=== PATIENT | male | born 2000 | race Caucasian/White ===

== ENCOUNTER 2019-10-04 09:51 | Emergency (ER) | payer OTHER, SELFPAY ==
--- NOTE | ~2019-10-04 | XR_ITS ---
XR ankle RT min 3V DATE: 10/04/2019 11:14 INDICATION: Fall. Right ankle pain. TECHNIQUE: 4 views COMPARISON: 07/19/2012 right ankle FINDINGS: There is prominent lateral soft tissue swelling. No fracture or dislocation of the ankle or disruption of the ankle mortise is detected. Os subfibular A, normal variant. IMPRESSION: Prominent lateral soft tissue swelling Reviewed, dictated and finalized at location B.
[2019-10-04 10:06] VITALS: BP 125/68; PULSE 64; RESP 12; TEMP 36.6; O2SAT 99
--- NOTE | 2019-10-04 11:29 | ED.GENADULT ---
HPI - General Adult General Chief complaint: Extremity Injury, Lower <Jose Eisenberg PA-C - Last Filed: 10/04/19 11:33> Stated complaint: right ankle pain <EMANI Meyers Last Filed: 10/04/19 11:33> Time Seen by Provider: 10/04/19 10:07 <Jose Eisenberg PA-C - Last Filed: 10/04/19 11:33> Source: patient and family <Jose Eisenberg PA-C - Last Filed: 10/04/19 11:33> Mode of arrival: ambulatory <Jose Eisenberg PA-C - Last Filed: 10/04/19 11:33> Limitations: no limitations <EMANI Meyers Last Filed: 10/04/19 11:33> History of Present Illness HPI narrative: Patient presents with right ankle pain and swelling after stepping into a hole just prior to arrival notes moderate aching pain with difficulty with bearing weight patient denies other injuries or complaints and on arrival to emergency department is in the room and no distress and has not had anything for pain. Patient denies other injuries or complaints <Jose Eisenberg PA-C - Last Filed: 10/04/19 11:33> Related Data Allergies/adverse reactions: Allergies Allergy/AdvReac Type Severity Reaction Status Date / Time No Known Allergies Allergy Unknown Verified 04/10/15 21:24 <Jose Eisenberg PA-C - Last Filed: 10/04/19 11:33> Review of Systems Review of Systems: All systems reviewed & are unremarkable except as noted in HPI and below <Jose Eisenberg PA-C - Last Filed: 10/04/19 11:33> [facility] Family History Family History: Family History (Updated 12/31/16 @ 07:34 by DOCTOR UNKNOWN) Mother Family history of thyroid disease Family history of hypothyroidism <Jose Eisenberg PA-C - Last Filed: 10/04/19 11:33> Social History Social History: Social History Smoking status: Never smoker Alcohol intake: never <EMANI Meyers Last Filed: 10/04/19 11:33> Exam Narrative: Exam Narrative: GENERAL: Well-appearing, well-nourished, and in no acute distress. HEAD: Normocephalic, atraumatic. EYES: PERRLA and EOMI. ENT: Nares clear, no rhinorrhea or epistaxis. Mucous membranes moist. EXTREMITIES: Swelling and tenderness of the right ankle joint remainder of extremity from the knee down nontender SKIN: Warm, dry, no rash. NEURO: No focal deficits. Alert and oriented x3. Neurovascularly intact PSYCH: Normal mood and affect. <Jose Eisenberg PA-C - Last Filed: 10/04/19 11:33> Course Course Emergency Course: Patient in the room aware of case findings treatment plan and diagnosis agreeing to follow-up as directed <Jose Eisenberg PA-C - Last Filed: 10/04/19 11:33> Vital Signs Vital signs: Vital Signs Temperature 97.9 F 10/04/19 10:06 Pulse Rate 64 10/04/19 10:06 Respiratory Rate 12 10/04/19 10:06 Blood Pressure 125/68 10/04/19 10:06 Pulse Oximetry 99 10/04/19 10:06 Temperature 97.9 F 10/04/19 10:06 Pulse Rate 65 10/04/19 12:03 Respiratory Rate 12 10/04/19 12:03 Blood Pressure 121/64 10/04/19 12:03 Pulse Oximetry 99 10/04/19 12:03 <Jose Eisenberg PA-C - Last Filed: 10/04/19 11:33> Vital Signs Temperature 97.9 F 10/04/19 10:06 Pulse Rate 64 10/04/19 10:06 Respiratory Rate 12 10/04/19 10:06 Blood Pressure 125/68 10/04/19 10:06 Pulse Oximetry 99 10/04/19 10:06 Temperature 97.9 F 10/04/19 10:06 Pulse Rate 65 10/04/19 12:03 Respiratory Rate 12 10/04/19 12:03 Blood Pressure 121/64 10/04/19 12:03 Pulse Oximetry 99 10/04/19 12:03 <Lesly Avila MD - Last Filed: 10/04/19 12:39> Medical Decision Making MDM Narrative Medical decision making narrative: Patients injury or pain is consistent with musculoskeletal etiology. No signs of neurological or vascular compromise on exam. Compartments and tisues are soft without signs of compartment syndrome. Pain is felt appropriate for further evaluation on an outpat
[2019-10-04 12:03] VITALS: BP 121/64; PULSE 65; RESP 12; O2SAT 99
[2019-10-04] MEDS: IBUPROFEN 600 MG TABLET PO (12:03)
== END 2019-10-04 12:05 | disposition home or self-care (01) ==
PROVIDERS: Emergency Provider Emergency Medicine
DX: S93.401A Sprain of unspecified ligament of right ankle, initial encounter (principal); S96.911A Strain of unspecified muscle and tendon at ankle and foot level, right foot, initial encounter; X50.9XXA Other and unspecified overexertion or strenuous movements or postures, initial encounter
CPT/HCPCS: 73610; 99283; A9270

== ENCOUNTER 2021-03-09 12:04 | Emergency (ER) | payer OTHER, SELFPAY ==
[2021-03-09 12:17] VITALS: BP 137/61; PULSE 71; RESP 16; TEMP 36.4; O2SAT 99
--- NOTE | 2021-03-09 12:29 | ED.URI ---
HPI - URI/Sore Throat General Chief Complaint: Upper Respiratory Infection Stated Complaint: Sore Throat Time Seen by Provider: 03/09/21 12:20 Source: patient, RN notes reviewed and old records reviewed Mode of arrival: ambulatory Limitations: no limitations History of Present Illness HPI Narrative: 20-year-old male presents to the [facility] with complaints of seeing a white spot on his left tonsil this morning. Started with a sore throat yesterday. No treatment prior to arrival Related Data Allergies Allergy/AdvReac Type Severity Reaction Status Date / Time No Known Allergies Allergy Unknown Verified 04/10/15 21:24 Review of Systems Review of Systems: All systems reviewed & are unremarkable except as noted in HPI and below Constitutional: Constitutional: Reports no additional constitutional complaints, Denies chills and Denies fever(s) Eyes: Eyes: Reports no additional eye complaints, Denies change in vision and Denies photophobia ENT: Reports as per HPI, Denies dizziness, Denies nasal congestion and Reports sore throat Cardiovascular: Cardiovascular: Reports no additional cardiovascular complaints and Denies chest pain Respiratory: Respiratory: Reports no additional respiratory complaints, Denies cough and Denies dyspnea Gastrointestinal: Gastrointestinal: Reports no additional gastrointestinal complaints, Denies abdominal pain, Denies diarrhea, Denies nausea and Denies vomiting Genitourinary: Genitourinary: Reports as per HPI Musculoskeletal: Musculoskeletal: Reports as per HPI Integumentary/Breasts: Skin/Breast: Reports system reviewed and no additional complaints, except as docu Neurologic: Reports system reviewed and no additional complaints, except as documented Psychiatric: Psychiatric: Reports no additional psychiatric complaints Allergic/Immunologic: Allergic/Immunologic: Reports no additional allergic/immunologic complaints [facility] Past Medical History Medical History (Updated 03/09/21 @ 12:39 by Antoinette Perkins) No significant medical problems Surgical History Surgical History (Updated 03/09/21 @ 12:39 by Antoinette Perkins) No significant past surgical history Family History Family History Mother Family history of thyroid disease Family history of hypothyroidism Social History Social History Smoking status: Never smoker Alcohol intake: never Comments At the time of my signature, I reviewed and agree with the nursing past medical, surgical, social, and family history. There is no relevant family history pertinent to the patient complaint. Exam Const: General: healthy appearing, no acute distress and alert Nutritional Appearance: well nourished and obese Orientation/consciousness: patient oriented x3 Limitations: no limitations HENMT: Head: normal to inspection Ears: external ears normal, TM's normal bilaterally and EAC's normal General nose exam: Normal external nose present and Normal nasal mucous membranes and turbinates present Face and sinus: normal facial exam Mouth: Yes Normal oral and palatal mucosa present, Yes lip normal, Yes tongue normal, Yes moist mucous membranes and No muffled voice Throat: uvula midline, abnormal tonsil bilateral hypertrophy 2+ and crypts (Left tonsil); no erythema and no exudates and no uvular edema Eyes: Conjunctivae: conjunctivae normal Pupils: Equal, round and reactive pupils present Neck: Neck: normal visual inspection, no lymphadenopathy and no meningeal signs Chest: Chest palpation & inspection: normal inspection of the chest Resp: Effort & Inspection: normal respiratory effort Auscultation: clear to auscultation bilaterally Cardio: Rate: regular rate Rhythm: regular rhythm GI: GI Palp: Yes Soft to palpation and No Tenderness to palpation present (GI) Back/Spine/Pelvis: Back: no CVA tenderness Skin: General skin exam: normal color Ra
== END 2021-03-09 12:38 | disposition home or self-care (01) ==
PROVIDERS: Emergency Provider Nurse Practitioner
DX: J02.9 Acute pharyngitis, unspecified (principal)
CPT/HCPCS: 87081; 87880; 99213; G0463